=== PATIENT | female | born 1990 | race Caucasian/White ===

== ENCOUNTER 2016-12-28 18:12 | Emergency (ER) | payer OTHER ==
[~2016-12-28] VITALS: Ht 170.2 cm; Wt 77.0 kg
[~2016-12-28 18:12] MED LIST: ACETAMINOPHEN W1 TA6 PO; ALBUTEROL0.09 MG/A1 IH; AMITRIPTYLINE H10 M1 PO; AMOXICILLIN 8751 TAB PO; CEPHALEXIN500 M1 PO; COLACE 100100 MG/CAP PO; DEPAKOTE500 MG PO; DIAMOX 250MG250 MG PO; DILAUDID 2MG TAB2 MG PO; DILAUDID 4MG TAB4 MG PO; DRAMAMINE25 MG PO; FIORICET 325 MG1 TA1 PO; FIORICET 325 MG1 TAB; FLEXERIL; FLEXERIL 1010 MG/TAB PO; HYDROCORTISO28.35 GM TP; IMITREX 6M6 MG/0.5 M SQ; IMPLANON68 MG ID; KLONOPIN 0.5MG0.5 MG PO; KLONOPIN2 MG PO; LORTAB 5/500 501 TAB PO; MEPEREDINE50 MG PO; NEURONTIN100 MG/CAP PO; NEURONTIN600 MG/TAB PO; NEURONTIN800 MG/TAB PO; NEXIUM 20MG20 MG PO; NEXIUM 40MG40 MG PO; NO HOME MEDICATIONS; NORCO 325 MG-101 TAB PO; NORCO 325 MG-51 TAB PO; NORCO 325 MG-7.1 TAB PO; PENICILLIN V250 MG PO; PERCOCET 325 MG1 TA2 PO; PERCOCET 325 MG1 TAB PO; PERCOCET 5/321 UDTAB PO; PERCOCET 500 MG1 TAB PO; PERCR 7.5 PO; PHENERGAN 25 TA25 MG PO; PHENERGAN W/CO120 ML PO; PHENERGAN25 MG RC; PRENATAL VITAMI1 TA5 PO; PRENATAL1 TA1 PO; PROMETHAZINE12.5 M5 PO; REGLAN 10M10 MG/2 ML; ROBAXIN 50500 MG/TAB; ROBAXIN 50500 MG/TAB PO; SENOKOT S 50 MG1 TAB PO; SEPTRA DS 8001 TAB PO; TAMIFLU 75MG75 MG PO; TOPAMAX 100MG100 M1 PO; TOPAMAX25 MG PO; TOPAMAX50 MG PO; TRAZODO50 MG PO; TYLENOL 325MG325 MG PO; TYLENOL 500MG500 MG PO; ZANAFLEX CAPSULE4 MG PO; ZANTAC 7575 MG PO; ZITHROMAX Z PA250 MG PO; ZOFRAN 4MG T4 MG/TAB PO; ZOFRAN ODT4 MG PO; ZOFRAN ODT8 MG PO; ZOFRAN4 M1 PO
[2016-12-28 19:04] LABS: BASO # 0.1 (0.0-0.2); BASO % 0.9 % (0.0-2.0); EOS # 0.1 (0.0-0.7); EOS % 1.5 % (0-4.0); GRAN # 4.6 (1.4-6.5); GRAN % 51.9 % (42.2-75.2); HEMATOCRIT 37.1 % (37.0-47.0); HEMOGLOBIN 12.5 g/dl (12.5-16.0); LYMPH # 3.4 (1.2-3.4); LYMPH % 38.3 % (20.0-51.0); MEAN CELL VOLUME 91 fl (80.0-100.0); MEAN CORPUSCULAR HEMOGLOBIN 31 pg (27.0-31.0); MEAN CORPUSCULAR HGB CONC 34 g/dl (33.0-37.0); MEAN PLATELET VOLUME 10.4 fl (7.4-10.4); MONO # 0.6 (0.1-0.6); MONO % 7.1 % (1.7-9.3); PLATELET COUNT 350 K/mm3 (130-400); RED BLOOD COUNT 4.08 M/mm3 (4.10-5.30); REDCELL DISTRIBUTION WIDTH-CV 13.3 % (11.5-14.5); WHITE BLOOD COUNT 8.9 K/mm3 (4.8-10.8)
[2016-12-28 19:13] LABS: ADJUSTED CALCIUM 9.4 mg/dL (8.4-10.2); BILIRUBIN,TOTAL 0.2 mg/dL (0.0-1.0); CALCIUM 9.4 mg/dL (8.4-10.2); CREATININE, serum 0.85 mg/dL (0.52-1.25); POTASSIUM 3.9 mmol/L (3.4-5.0)
[2016-12-28 19:39] LABS: PH 6 (5-8); SQUAMOUS EPITHELIAL 0-2 /hpf; URINE APPEARANCE Clear; URINE BACTERIA None Seen /hpf; URINE BILIRUBIN Negative (NEGATIVE); URINE BLOOD 3+ (NEGATIVE); URINE COLOR Straw; URINE GLUCOSE Negative (NEGATIVE); URINE KETONE Negative (NEGATIVE); URINE RBC >50 /hpf; URINE UROBILINOGEN Negative (NEGATIVE); URINE WBC 0-2 /hpf
[2016-12-28 20:47] VITALS: BP 115/60; PULSE 79; TEMP 98.1
== END 2016-12-28 20:46 | disposition home or self-care (01) ==
LOC: COL.ER 18:12
PROVIDERS: Emergency Medicine
DX: R10.32 Left lower quadrant pain (principal); E28.2 Polycystic ovarian syndrome
CPT/HCPCS: Q9967

== ENCOUNTER 2017-06-04 18:45 | Emergency (ER) | payer SELFPAY ==
[2017-06-04 19:29] LABS: BASO # 0.1 (0.0-0.2); BASO % 0.5 % (0.0-2.0); EOS # 0.3 (0.0-0.7); EOS % 1.4 % (0-4.0); GRAN # 12.7 (1.4-6.5); GRAN % 72.4 % (42.2-75.2); HEMOGLOBIN 13.4 g/dl (12.5-16.0); LYMPH # 3.3 (1.2-3.4); LYMPH % 18.9 % (20.0-51.0); MEAN CELL VOLUME 87 fl (80.0-100.0); MEAN CORPUSCULAR HEMOGLOBIN 32 pg (27.0-31.0); MEAN CORPUSCULAR HGB CONC 37 g/dl (33.0-37.0); MEAN PLATELET VOLUME 10.2 fl (7.4-10.4); MONO # 1.1 (0.1-0.6); MONO % 6.3 % (1.7-9.3); PLATELET COUNT 325 K/mm3 (130-400); RED BLOOD COUNT 4.14 M/mm3 (4.10-5.30); REDCELL DISTRIBUTION WIDTH-CV 12.2 % (11.5-14.5)
[2017-06-04 19:30] LABS: HEMATOCRIT 36.1 % (37.0-47.0)
[2017-06-04 19:39] LABS: ALANINE AMINOTRANSFERASE 29 U/L (9-52); ALBUMIN 4.6 gm/dL (3.5-5.0); ALKALINE PHOSPHATASE 73 U/L (50-136); ANION GAP 18 mmol/L (7-16); AST,SGOT 32 U/L (15-37); BILIRUBIN,TOTAL 0.6 mg/dL (0.0-1.0); BLOOD UREA NITROGEN 11 mg/dL (7-17); CALCIUM 9.2 mg/dL (8.4-10.2); CARBON DIOXIDE 17 mmol/L (22-30); CHLORIDE 103 mmol/L (98-107); CREATININE, serum 0.89 mg/dL (0.52-1.25); GLUCOSE 139 mg/dL (74-106); SODIUM 138 mmol/L (137-145); TOTAL PROTEIN 7.3 gm/dL (6.4-8.2)
[2017-06-04 19:42] LABS: POTASSIUM 2.5 mmol/L (3.4-5.0)
[2017-06-04 19:50] LABS: TROPONIN-I < 0.012 ng/mL (0.000-0.034)
[2017-06-04 20:20] LABS: COLLECTION METHOD CLEAN CATCH
[2017-06-04 20:30] LABS: MUCOUS Present /lpf; PH 5 (5-8); SQUAMOUS EPITHELIAL 0-2 /hpf; URINE APPEARANCE Hazy; URINE BACTERIA Rare /hpf; URINE BILIRUBIN Negative (NEGATIVE); URINE BLOOD 2+ (NEGATIVE); URINE COLOR Yellow; URINE GLUCOSE Negative (NEGATIVE); URINE KETONE 2+ (NEGATIVE); URINE LEUKOCYTE ESTERASE 2+ (NEGATIVE); URINE NITRATE Negative (NEGATIVE); URINE PROTEIN(semi-quant) 1+ (NEGATIVE); URINE RBC 20-50 /hpf
[2017-06-04 20:40] LABS: TRICYCLIC ANTIDEPRESS URINE NEGATIVE
[2017-06-04] MEDS ORDERED: PREDNISONE20 MG PO (22:03)
[2017-06-04] MEDS ORDERED: K-DUR 10 MEQ T10 MEQ PO (22:03)
[2017-06-04] MEDS ORDERED: PROAIR HFA0.09 MG/AC IH (22:03)
[2017-06-04] MEDS ORDERED: MAG-OX 400400 MG/TAB PO (22:03)
[2017-06-04] MEDS ORDERED: CIPRO 500MG TA500 MG PO (22:03)
[2017-06-04 23:15] VITALS: BP 114/62; PULSE 80; TEMP 98
== END 2017-06-04 23:21 | disposition home or self-care (01) ==
LOC: COL.ER 18:45
PROVIDERS: Emergency Medicine
DX: J45.901 Unspecified asthma with (acute) exacerbation (principal); E87.6 Hypokalemia; F41.9 Anxiety disorder, unspecified; R06.4 Hyperventilation; E83.42 Hypomagnesemia; F17.200 Nicotine dependence, unspecified, uncomplicated; N39.0 Urinary tract infection, site not specified; F41.0 Panic disorder [episodic paroxysmal anxiety]; R78.1 Finding of opiate drug in blood; R78.89 Finding of other specified substances, not normally found in blood
CPT/HCPCS: J3475; J3480; J7512

== ENCOUNTER 2018-03-28 20:01 | Emergency (ER) | payer SELFPAY ==
[~2018-03-28] VITALS: Ht 170.2 cm; Wt 75.0 kg
[~2018-03-28 20:01] MED LIST changes: +CIPRO 500MG TA500 MG PO; +K-DUR 10 MEQ T10 MEQ PO; +MAG-OX 400400 MG/TAB PO; +PREDNISONE20 MG PO; +PROAIR HFA0.09 MG/AC IH
[2018-03-28 20:04] VITALS: BP 135/81; TEMP 97
[2018-03-28 20:57] VITALS: PULSE 91
== END 2018-03-28 20:57 | disposition home or self-care (01) ==
LOC: COL.ER 20:01
DX: S93.602A Unspecified sprain of left foot, initial encounter (principal); F17.210 Nicotine dependence, cigarettes, uncomplicated; X50.0XXA Overexertion from strenuous movement or load, initial encounter; Y92.009 Unspecified place in unspecified non-institutional (private) residence as the place of occurrence of the external cause

== ENCOUNTER 2018-06-02 22:59 | Emergency (ER) | payer SELFPAY ==
[~2018-06-02] VITALS: Ht 170.2 cm; Wt 75.0 kg
[2018-06-02 23:20] VITALS: BP 135/82; TEMP 98.1
[2018-06-02 23:55] LABS: BASO # 0.1 (0.0-0.2); BASO % 0.6 % (0.0-2.0); EOS # 0.3 (0.0-0.7); EOS % 2.7 % (0-4.0); GRAN # 7.4 (1.4-6.5); GRAN % 60.4 % (42.2-75.2); HEMATOCRIT 38.6 % (37.0-47.0); HEMOGLOBIN 13.1 g/dl (12.5-16.0); LYMPH # 3.5 (1.2-3.4); LYMPH % 28.4 % (20.0-51.0); MEAN CELL VOLUME 91 fl (80.0-100.0); MEAN CORPUSCULAR HEMOGLOBIN 31 pg (27.0-31.0); MEAN CORPUSCULAR HGB CONC 34 g/dl (33.0-37.0); MEAN PLATELET VOLUME 9.5 fl (7.4-10.4); MONO # 0.9 (0.1-0.6); MONO % 7.4 % (1.7-9.3); PLATELET COUNT 347 K/mm3 (130-400); RED BLOOD COUNT 4.23 M/mm3 (4.10-5.30); REDCELL DISTRIBUTION WIDTH-CV 12.9 % (11.5-14.5)
[2018-06-03 00:11] LABS: ALANINE AMINOTRANSFERASE 36 U/L (9-52); ALBUMIN 3.7 gm/dL (3.5-5.0); ALKALINE PHOSPHATASE 45 U/L (50-136); ANION GAP 8 mmol/L (7-16); AST,SGOT 28 U/L (15-37); BILIRUBIN,TOTAL < 0.1 mg/dL (0.0-1.0); BLOOD UREA NITROGEN 13 mg/dL (7-17); CARBON DIOXIDE 28 mmol/L (22-30); CHLORIDE 99 mmol/L (98-107); CREATININE, serum 0.72 mg/dL (0.52-1.25); GLUCOSE 75 mg/dL (74-106); LIPASE 163 U/L (23-300); POTASSIUM 3.9 mmol/L (3.4-5.0); SODIUM 135 mmol/L (137-145); TOTAL PROTEIN 6.6 gm/dL (6.4-8.2)
[2018-06-03 00:15] LABS: C-REACTIVE PROTEIN < 0.5 mg/dL (0.0-0.9)
[2018-06-03 00:19] LABS: COLLECTION METHOD CLEAN CATCH
[2018-06-03 00:46] LABS: PH 8 (5-8); SQUAMOUS EPITHELIAL 0-2 /hpf; URINE APPEARANCE Clear; URINE BACTERIA None Seen /hpf; URINE BILIRUBIN Negative (NEGATIVE); URINE BLOOD Negative (NEGATIVE); URINE COLOR Yellow; URINE GLUCOSE Negative (NEGATIVE); URINE KETONE Negative (NEGATIVE); URINE LEUKOCYTE ESTERASE Negative (NEGATIVE); URINE NITRATE Negative (NEGATIVE); URINE PROTEIN(semi-quant) Negative (NEGATIVE); URINE RBC 0-2 /hpf; URINE UROBILINOGEN Negative (NEGATIVE)
[2018-06-03 00:54] LABS: HCG,QUANTITATIVE 55421 mIU/mL (0-5)
[2018-06-03 02:51] VITALS: PULSE 80
== END 2018-06-03 05:21 | disposition home or self-care (01) ==
LOC: COL.ER 22:59
PROVIDERS: Emergency Medicine
DX: O26.891 Other specified pregnancy related conditions, first trimester (principal); O99.331 Smoking (tobacco) complicating pregnancy, first trimester; R10.2 Pelvic and perineal pain; F17.210 Nicotine dependence, cigarettes, uncomplicated; Z90.49 Acquired absence of other specified parts of digestive tract; Z90.89 Acquired absence of other organs; Z3A.00 Weeks of gestation of pregnancy not specified

== ENCOUNTER → 2018-06-03 | Outpatient (CLI) | payer SELFPAY | LOC: COL.RAD 11:02 | DX: O26.891 Other specified pregnancy related conditions, first trimester (principal); R10.2 Pelvic and perineal pain; Z3A.08 8 weeks gestation of pregnancy ==

== ENCOUNTER 2018-12-03 19:51 | Emergency (ER) | payer MEDICAID ==
[~2018-12-03] VITALS: Ht 170.2 cm; Wt 84.1 kg
[2018-12-03 20:05] VITALS: BP 152/79; TEMP 98.4
[2018-12-03 23:17] VITALS: PULSE 111
== END 2018-12-03 23:18 | disposition home or self-care (01) ==
LOC: COL.ER 19:51
DX: K08.89 Other specified disorders of teeth and supporting structures (principal); F17.210 Nicotine dependence, cigarettes, uncomplicated

== ENCOUNTER 2019-10-28 12:02 | Emergency (ER) | payer SELFPAY ==
[~2019-10-28] VITALS: Ht 170.2 cm; Wt 81.8 kg
[2019-10-28 12:04] VITALS: TEMP 98.1
[2019-10-28 13:33] LABS: COLLECTION METHOD CLEAN CATCH
[2019-10-28 13:40] LABS: BASO # 0.1 (0.0-0.2); BASO % 1.1 % (0.0-2.0); EOS # 0.2 (0.0-0.7); EOS % 2.8 % (0-4.0); GRAN # 3.2 (1.4-6.5); GRAN % 56.1 % (42.2-75.2); HEMATOCRIT 42.6 % (37.0-47.0); HEMOGLOBIN 14.5 g/dl (12.5-16.0); LYMPH # 1.8 (1.2-3.4); MEAN CELL VOLUME 91 fl (80.0-100.0); MEAN CORPUSCULAR HEMOGLOBIN 31 pg (27.0-31.0); MEAN CORPUSCULAR HGB CONC 34 g/dl (33.0-37.0); MEAN PLATELET VOLUME 9.8 fl (7.4-10.4); MONO # 0.5 (0.1-0.6); MONO % 8.5 % (1.7-9.3); PLATELET COUNT 354 K/mm3 (130-400); RED BLOOD COUNT 4.66 M/mm3 (4.10-5.30); REDCELL DISTRIBUTION WIDTH-CV 13.2 % (11.5-14.5)
[2019-10-28 13:43] LABS: MUCOUS Present /lpf; PH 5 (5-8); SQUAMOUS EPITHELIAL 0-2 /hpf; URINE APPEARANCE Clear; URINE BACTERIA None Seen /hpf; URINE BILIRUBIN Negative (NEGATIVE); URINE BLOOD Negative (NEGATIVE); URINE COLOR Yellow; URINE GLUCOSE Negative (NEGATIVE); URINE KETONE Negative (NEGATIVE); URINE LEUKOCYTE ESTERASE Negative (NEGATIVE); URINE NITRATE Negative (NEGATIVE); URINE PROTEIN(semi-quant) Negative (NEGATIVE); URINE RBC None Seen /hpf; URINE UROBILINOGEN Negative (NEGATIVE)
[2019-10-28 14:26] LABS: ALBUMIN 4.4 gm/dL (3.5-5.0); BILIRUBIN,TOTAL 0.4 mg/dL (0.0-1.0); C-REACTIVE PROTEIN 0.6 mg/dL (0.0-0.9); CALCIUM 9.4 mg/dL (8.4-10.2); CREATININE, serum 0.71 (0.52-1.25); POTASSIUM 4.3 mmol/L (3.4-5.0); TOTAL PROTEIN 7.8 gm/dL (6.4-8.2)
[2019-10-28 17:10] VITALS: BP 99/78; PULSE 76
[2019-10-28] MEDS ORDERED: FLEXERIL 1010 MG/TAB PO (17:10)
[2019-10-28] MEDS ORDERED: MEDROL 4MG DOSPA4 MG PO (17:10)
[2019-10-28] MEDS ORDERED: NORCO 325 MG-51 TAB PO (17:10)
== END 2019-10-28 17:35 | disposition home or self-care (01) ==
LOC: COL.ER 12:02
PROVIDERS: Physician Assistant
DX: M54.16 Radiculopathy, lumbar region (principal); F17.210 Nicotine dependence, cigarettes, uncomplicated; Z88.6 Allergy status to analgesic agent; X50.1XXA Overexertion from prolonged static or awkward postures, initial encounter; Y93.9 Activity, unspecified
CPT/HCPCS: J1100; J1170; J2405; J3360; J7030

== ENCOUNTER → 2021-11-29 | Outpatient (CLI) | payer SELFPAY ==
[~2021-11-29] MED LIST changes: +MEDROL 4MG DOSPA4 MG PO
== END ==
LOC: COL.RAD 10:30
DX: O44.40 Low lying placenta NOS or without hemorrhage, unspecified trimester (principal)

== ENCOUNTER 2022-02-07 00:16 | Emergency (ER) | payer MEDICAID ==
[~2022-02-07] VITALS: Ht 170.2 cm; Wt 87.0 kg
[2022-02-07 00:20] VITALS: TEMP 97.6
[2022-02-07 00:47] LABS: BASO # 0.1 K/mm3 (0.0-0.2); BASO % 0.5 % (0.0-2.0); EOS # 0.2 K/mm3 (0.0-0.7); EOS % 1.1 % (0.0-4.0); GRAN # 9.2 K/mm3 (1.4-6.5); HEMOGLOBIN 13.5 g/dl (12.5-16.0); LYMPH # 2.9 K/mm3 (1.2-3.4); LYMPH % 21.7 % (20.0-51.0); MEAN CELL VOLUME 87 fl (80.0-100.0); MEAN CORPUSCULAR HEMOGLOBIN 31 pg (27-31); MEAN CORPUSCULAR HGB CONC 36 g/dl (33.0-37.0); MEAN PLATELET VOLUME 9.2 fl (7.4-10.4); MONO # 0.8 K/mm3 (0.1-0.6); MONO % 6.4 % (1.7-9.3); PLATELET COUNT 492 K/mm3 (130-400); RED BLOOD COUNT 4.38 M/mm3 (4.10-5.30); REDCELL DISTRIBUTION WIDTH-CV 13.1 % (11.5-14.5)
[2022-02-07 01:06] LABS: ALANINE AMINOTRANSFERASE 24 U/L (0-55); ALBUMIN 3.1 gm/dL (3.5-5.0); ALKALINE PHOSPHATASE 102 U/L (40-150); ANION GAP 15 mmol/L (7-16); AST,SGOT 13 U/L (5-34); BILIRUBIN,TOTAL 0.2 mg/dL (0.2-1.2); BLOOD UREA NITROGEN 12 mg/dL (7-19); CALCIUM 9.3 mg/dL (8.4-10.2); CARBON DIOXIDE 19 mmol/L (22-29); CHLORIDE 104 mmol/L (98-107); CREATINE KINASE 82 U/L (29-168); CREATININE, serum 0.94 mg/dL (0.57-1.11); GLUCOSE 114 mg/dL (70-99); POTASSIUM 3.6 mmol/L (3.5-4.5); SODIUM 138 mmol/L (136-145); TOTAL PROTEIN 7.4 gm/dL (6.2-8.1)
[2022-02-07 01:13] LABS: TROPONIN-I < 0.010 ng/mL (0.00-0.033)
[2022-02-07 02:15] VITALS: BP 125/82; PULSE 89
== END 2022-02-07 02:40 | disposition home or self-care (01) ==
LOC: COL.ER 00:16
PROVIDERS: Emergency Medicine
DX: O90.89 Other complications of the puerperium, not elsewhere classified (principal); O87.1 Deep phlebothrombosis in the puerperium; O99.335 Smoking (tobacco) complicating the puerperium; R07.2 Precordial pain; I82.441 Acute embolism and thrombosis of right tibial vein; R06.02 Shortness of breath; F17.210 Nicotine dependence, cigarettes, uncomplicated; Z88.6 Allergy status to analgesic agent; Z28.310 Unvaccinated for COVID-19; Z79.01 Long term (current) use of anticoagulants
CPT/HCPCS: J3010

== ENCOUNTER 2022-02-10 12:36 | Emergency (ER) | payer MEDICAID ==
[~2022-02-10] VITALS: Ht 170.2 cm; Wt 88.6 kg
[2022-02-10] VITALS (50 sets, daily range): BP systolic 110; BP diastolic 91; PULSE 85; TEMP 98.2; O2SAT 84–100
[2022-02-10 13:06] LABS: BASO # 0.1 K/mm3 (0.0-0.2); BASO % 1.3 % (0.0-2.0); EOS # 0.3 K/mm3 (0.0-0.7); EOS % 3.4 % (0.0-4.0); GRAN # 4.5 K/mm3 (1.4-6.5); HEMATOCRIT 40.5 % (37.0-47.0); LYMPH # 2.4 K/mm3 (1.2-3.4); LYMPH % 31.3 % (20.0-51.0); MEAN CELL VOLUME 90 fl (80.0-100.0); MEAN CORPUSCULAR HEMOGLOBIN 31 pg (27-31); MEAN CORPUSCULAR HGB CONC 35 g/dl (33.0-37.0); MEAN PLATELET VOLUME 9.6 fl (7.4-10.4); MONO # 0.4 K/mm3 (0.1-0.6); MONO % 5.6 % (1.7-9.3); PLATELET COUNT 519 K/mm3 (130-400); RED BLOOD COUNT 4.49 M/mm3 (4.10-5.30); REDCELL DISTRIBUTION WIDTH-CV 13.1 % (11.5-14.5)
[2022-02-10 13:21] LABS: ALANINE AMINOTRANSFERASE 23 U/L (0-55); ALBUMIN 3.4 gm/dL (3.5-5.0); ALKALINE PHOSPHATASE 102 U/L (40-150); ANION GAP 11 mmol/L (7-16); AST,SGOT 19 U/L (5-34); BILIRUBIN,TOTAL 0.4 mg/dL (0.2-1.2); BLOOD UREA NITROGEN 14 mg/dL (7-19); CALCIUM 9.1 mg/dL (8.4-10.2); CARBON DIOXIDE 22 mmol/L (22-29); CHLORIDE 105 mmol/L (98-107); CREATININE, serum 0.96 mg/dL (0.57-1.11); GLUCOSE 106 mg/dL (70-99); POTASSIUM 4.2 mmol/L (3.5-4.5); SODIUM 138 mmol/L (136-145); TOTAL PROTEIN 7.8 gm/dL (6.2-8.1)
[2022-02-10 13:29] LABS: TROPONIN-I < 0.010 ng/mL (0.00-0.033)
== END 2022-02-10 14:13 | disposition home or self-care (01) ==
LOC: COL.ER 12:36
PROVIDERS: Physician Assistant
DX: R07.89 Other chest pain (principal); R06.02 Shortness of breath; F17.210 Nicotine dependence, cigarettes, uncomplicated; G93.2 Benign intracranial hypertension; Z86.718 Personal history of other venous thrombosis and embolism; Z28.310 Unvaccinated for COVID-19

== ENCOUNTER 2022-02-12 11:55 | Emergency (ER) | payer MEDICAID ==
[~2022-02-12] VITALS: Ht 170.2 cm; Wt 87.0 kg
[2022-02-12 12:00] VITALS: BP 116/75; PULSE 112; TEMP 98
== END 2022-02-12 14:02 | disposition left against medical advice (07) ==
LOC: COL.ER 11:55
DX: R07.9 Chest pain, unspecified (principal)